=== PATIENT | male | born 2000 | race African-American/Black ===

== ENCOUNTER 2020-09-01 20:09 | Emergency (ER) | payer MEDICAID ==
[~2020-09-01] VITALS: Ht 180.3 cm; Wt 61.2 kg
[2020-09-01 20:18] VITALS: BP 145/80
--- NOTE | 2020-09-01 20:21 | NUR ---
ED Nurse Note: Patient walked into ED with a variety of problems, patient reports of flu like symptoms 7 days ago, reports of post nasal drip and a sore throat, patient reports of feeling his lymph nodes became enlarged 5 days ago, reports of no fever however reports of chills. patient denies any SOB. patient is alert and oriented x4, ambulatory with a steady gait, VSS.
[2020-09-01] MEDS ORDERED: AMOXICILLIN500 MG ORAL (20:33)
[2020-09-01] MEDS ORDERED: IBUPROFEN600 M1 ORAL (20:33)
[2020-09-01 20:42] VITALS: BP 128/73
--- NOTE | 2020-09-01 20:43 | NUR ---
ER DISCHARGE NOTE: Patient is cleared to be discharged per ERMD, pt is aox4, on room air, with stable vital signs. pt was given dc and prescription instructions, pt was able to verbalize understanding, pt id band removed without complications. pt is able to ambulate with steady gait. pt took all belongings.
--- NOTE | 2020-09-01 20:59 | Emergency Room Report ---
History of Present Illness General Chief Complaint: General Complaint Source: Patient Present Illness HPI 20-year-old male presents for evaluation. States he feels like he has swollen lymph nodes x5 days. Also notes runny nose and congestion. Sore throat. Pain is dull, 7 out of 10, nonradiating. Denies fevers or chills. Denies chest pain or shortness of breath. No other aggravating relieving factors. Denies any other associated symptoms Allergies: Coded Allergies: No Known Allergies (Unverified , 09/01/20) COVID-19 Screening Contact w/high risk pt: No Experienced COVID-19 symptoms?: No COVID-19 Testing performed P[employer]: No COVID-19 Screening: Negative COVID-19 Patient History Past Medical History: none Past Surgical History: none Pertinent Family History: none Social History: Denies: smoking, alcohol use, drug use Immunizations: UTD Reviewed Nursing Documentation: PMH: Agreed; PSxH: Agreed Nursing Documentation-PMH Past Medical History: No Stated History Review of Systems All Other Systems: negative except mentioned in HPI Physical Exam Vital Signs Date Time Temp Pulse Resp B/P (MAP) Pulse Ox O2 Delivery O2 Flow Rate FiO2 09/01/20 20:13 98.1 90 16 145/80 (101) 97 Room Air Sp02 EP Interpretation: reviewed, normal General Appearance: no apparent distress, alert, GCS 15, non-toxic Head: normocephalic, atraumatic Eyes: bilateral eye normal inspection, bilateral eye PERRL ENT: hearing grossly normal, normal pharynx, no angioedema, normal voice Neck: full range of motion, supple/symm/no masses Respiratory: chest non-tender, lungs clear, normal breath sounds, speaking full sentences Cardiovascular #1: regular rate, rhythm, no edema Cardiovascular #2: 2+ carotid (R), 2+ carotid (L), 2+ radial (R), 2+ radial (L), 2+ dorsalis pedis (R), 2+ dorsalis pedis (L) Gastrointestinal: normal bowel sounds, non tender, soft, non-distended, no guarding, no rebound Rectal: deferred Genitourinary: normal inspection, no CVA tenderness Musculoskeletal: back normal, normal range of motion, gait/station normal, non- tender Neurologic: alert, motor strength/tone normal, oriented x3, sensory intact, responsive, speech normal Psychiatric: judgement/insight normal, memory normal, mood/affect normal, no suicidal/homicidal ideation Reflexes: 3+ bicep (R), 3+ bicep (L), 3+ tricep (R), 3+ tricep (L), 3+ knee (R), 3+ knee (L) Lymphatic: adenopathy Medical Decision Making Diagnostic Impression: Primary Impression: Lymphadenopathy ER Course Hospital Course 20-year-old male presents with runny nose congestion sore throat and swollen lymph nodes Differential diagnoses include: URI, pharyngitis, otitis media, asthma Clinical course Patient placed on stretcher. After initial history, physical exam reveals a young male in no acute distress. Bilateral TM unremarkable. No pharyngeal erythema. No tonsillar exudates. There is noted submandibular lymphadenopathy discussed findings with patient. Will discharge with antibiotics. Safe for discharge and close outpatient follow-up. Does not have a PMD. I will provide referrals Diagnosis - lymphadenopathy Stable and discharged home. Instructed to followup with PMD. Return to ED if symptoms recur or worsen Last Vital Signs Date Time Temp Pulse Resp B/P (MAP) Pulse Ox O2 Delivery O2 Flow Rate FiO2 09/01/20 20:42 98.1 82 16 128/73 97 Room Air Status: improved Disposition: HOME, SELF-CARE Condition: Stable Scripts Ibuprofen* (MOTRIN*) 600 Mg Tablet 600 MG ORAL Q8H PRN for FOR PAIN, #30 TAB 0 Refills Prov: Jeremiah Prieto MD 09/01/20 Amoxicillin* (AMOXIL*) 500 Mg Capsule 500 MG ORAL THREE TIMES A DAY, #21 CAP Prov: Jeremiah Prieto MD 09/01/20 Referrals: [facility] Patient Instructions: Lymphadenopathy Jeremiah Prieto MD Sep 01, 2020 20:58
== END 2020-09-01 20:42 | disposition home or self-care (01) ==
LOC: EMR 20:25
DX: R59.1 Generalized enlarged lymph nodes (principal)
CPT/HCPCS: 99282